=== PATIENT | female | born 1970 | race Caucasian/White ===

== ENCOUNTER 2018-01-06 20:24 | Emergency (ER) | payer BC ==
[2018-01-06 20:29] VITALS: TEMP 97.9
--- NOTE | 2018-01-06 22:05 | EDPHY ---
H & P Stated Complaint: Bloating & abd pressure Time Seen by Provider: 01/06/18 21:49 HPI/ROS: Chief Complaint: Bloating HPI: 47-year-old woman with a history of diabetes, there will bowel syndrome and GERD. Patient states about a week ago she started getting some worsening irritable bowel type symptoms. Was nausea vomiting which ended 3 days ago. Over the last couple days she noticed some increase upper abdominal bloating. She has been having normal bowel movements, several today. Is usual for her alternate form stools with loose stools with her irritable bowel syndrome. No fevers or chills. She also thinks she might be developing a urinary tract infection. She called the nurse line was told that given her symptoms she should probably come to the emergency depart for further evaluation. She also believes she might be getting her menstrual period. She is irregular and she is currently perimenopausal. ROS: 10 point Review of Systems is negative except as noted in the HPI. PMH: GERD, irritable bowel, diabetes, hypertension, cholecystectomy Social History: No smoking, no alcohol, no recreational drug use Family History: non-contributory Physical Exam: Gen: Awake, Alert, No Distress, obese HEENT: Nose: no rhinorrhea Eyes: PERRLA, EOMI Mouth: Moist mucosa Neck: Supple, no JVD Chest: nontender, lungs clear to auscultation Heart: S1, S2 normal, no murmur Abd: Obese, Soft, non-tender, no guarding Back: no CVA tenderness, no midline tenderness Ext: no edema, non-tender Skin: no rash Neuro: CN II-XII intact, Sensation grossly intact, Strength 5/5 in bilateral upper and lower extremities - Personal History LMP (Females 10-55): 22-28 Days Ago Current Tetanus/Diphtheria Vaccine: Yes Current Tetanus Diphtheria and Acellular Pertussis (TDAP): Yes - Medical/Surgical History Hx Asthma: No Hx Chronic Respiratory Disease: No Hx Diabetes: Yes Hx Cardiac Disease: Yes Hx Renal Disease: No Hx Cirrhosis: No Hx Alcoholism: No Hx HIV/AIDS: No Hx Splenectomy or Spleen Trauma: No Other PMH: GERD, DM, HTN, IBS - Social History Smoking Status: Former smoker Constitutional: Initial Vital Signs Temperature (C) 36.6 C 01/06/18 20:27 Heart Rate 105 H 03/16/18 20:27 Respiratory Rate 16 01/06/18 20:27 Blood Pressure 168/110 H 01/06/18 20:27 O2 Sat (%) 95 01/06/18 20:27 O2 Delivery Mode Room Air Allergies/Adverse Reactions: iodine Allergy (Verified 03/07/15 14:25) Penicillins Allergy (Verified 03/07/15 14:25) Sulfa (Sulfonamide Antibiotics) Allergy (Verified 03/07/15 14:25) Home Medications: Medication Instructions Recorded Doxycycline Hyclate [Vibramycin 100 mg PO BID #14 cap 03/07/15 100 MG (*)] Nitrofurantoin Monohyd/M-Cryst 100 mg PO BID #10 capsule 01/06/18 [Macrobid 100 mg Capsule] Medical Decision Making ED Course/Re-evaluation: Patient's urinalysis is equivocal but likely consistent with early urinary tract infection was started on a 5 day course of nitrofurantoin. She will follow up with primary care physician early next week for further evaluation. - Data Points Laboratory Results: 01/06/18 22:15 Urine Color YELLOW Urine Appearance HAZY Urine pH 6.0 (5.0-7.5) Ur Specific [place] 1.012 (1.002-1.030) Urine Protein NEGATIVE (NEGATIVE) Urine Ketones NEGATIVE (NEGATIVE) Urine Blood 3+ H (NEGATIVE) Urine Nitrate NEGATIVE (NEGATIVE) Urine Bilirubin NEGATIVE (NEGATIVE) Urine Urobilinogen NEGATIVE EU EU (0.2-1.0) Ur Leukocyte Esterase TRACE H (NEGATIVE) Urine RBC 1-3 /hpf /hpf (0-3) Urine WBC 3-5 /hpf H /hpf (0-3) Ur Epithelial Cells TRACE /lpf /lpf (NONE-1+) Urine Bacteria 4+ /hpf H /hpf (NONE SEEN) Urine Mucus TRACE /lpf /lpf (NONE-1+) Urine Glucose NEGATIVE (NEGATIVE) Departure - Departure Disposition: Home, Routine, Self-Care Clinical Impression: Urinary tract infection Condition: Good Instructions: Urinary Tract Infection in Women (ED) Additional Instructions: Please take her full course of antibiotics. Follow up with your primary care physician in 3-4 days for further evaluation. Referrals: Paola White MD [Primary Care Provider] - As per Instructions Prescriptions: Nitrofurantoin Monohyd/M-Cryst [Macrobid 100 mg Capsule] 100 mg PO BID #10 capsule
[2018-01-06] MEDS ORDERED: NITROFURANTOIN 100MG PREPACK#2 BTL TAKEHOME ONE (23:18)
[2018-01-06 23:42] VITALS: BP 139/95; PULSE 91; RESP 20; O2SAT 98
== END 2018-01-06 23:42 | disposition home or self-care (01) ==
DX: N39.0 Urinary tract infection, site not specified (principal); B96.89 Other specified bacterial agents as the cause of diseases classified elsewhere

== ENCOUNTER → 2018-01-27 | Outpatient (CLI) | payer BC ==
[~2018-01-27] MED LIST: IOPAMIDOL (ISOVUE-300) 100 ML BTL ONE
== END ==
LOC: FIMAGING 12:01
PROVIDERS: ATTEND Family Medicine
DX: N13.30 Unspecified hydronephrosis (principal); N83.299 Other ovarian cyst, unspecified side; K76.0 Fatty (change of) liver, not elsewhere classified; N39.0 Urinary tract infection, site not specified; R91.1 Solitary pulmonary nodule
CPT/HCPCS: Q9967

== ENCOUNTER → 2018-12-06 | Outpatient (CLI) | payer BC | LOC: FIMAGING 12:09 | PROVIDERS: ATTEND Family Medicine | DX: Z12.31 Encounter for screening mammogram for malignant neoplasm of breast (principal); Z85.43 Personal history of malignant neoplasm of ovary ==

== ENCOUNTER → 2019-04-16 | Outpatient (CLI) | payer BC | LOC: BRMIMAGING 08:47 ==